=== PATIENT | male | born 1970 | race Caucasian/White ===

== ENCOUNTER → 2021-09-11 | Outpatient (CLI) | payer OTHER ==
[~2021-09-11] MED LIST: ASPIRIN E.C. 8181 MG PO; GEMFIBROZIL600 MG PO; LOPID600 MG PO; NEXIUM 40MG40 MG PEG; PRILOSEC 20MG20 MG PO; PROPANOLOL
== END ==
LOC: MHCPAIN 10:44
DX: M53.3 Sacrococcygeal disorders, not elsewhere classified (principal); M54.16 Radiculopathy, lumbar region; M47.26 Other spondylosis with radiculopathy, lumbar region
CPT/HCPCS: G0463